=== PATIENT | male | born 1950 | race African-American/Black ===

== ENCOUNTER → 2021-11-12 | Outpatient (CLI) | payer MEDICARE ==
[2021-11-12 21:08] LABS: IMMUNOGLOBULIN A 136 mg/dL (61-437)
[2021-11-14 06:14] LABS: IGG1 926 mg/dL (248-810); IGG2 470 mg/dL (130-555); IGG3 132 mg/dL (15-102); TOTAL IGG 1592 mg/dL (603-1613)
== END ==
LOC: LAB 09:36
PROVIDERS: ATTEND Internal Medicine Pulmonary Disease
DX: R93.5 Abnormal findings on diagnostic imaging of other abdominal regions, including retroperitoneum (principal)
CPT/HCPCS: 36415; 82784; 82787; 86481; 87070